=== PATIENT | male | born 1960 | race Caucasian/White ===

== ENCOUNTER 2017-02-06 12:51 | Emergency (ER) | payer MEDICARE, MEDICAID ==
[2017-02-06] MEDS ORDERED: RINGERS SOLUTION,LACTATED 1,000 ML IV ONE (13:03)
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
[2017-02-06] MEDS ORDERED: PANTOPRAZOLE SODIUM 40 MG VIAL IV PRN (13:07)
[2017-02-06] MEDS ORDERED: PANTOPRAZOLE SODIUM 40 MG VIAL IV ONE (13:07)
[2017-02-06 13:28] LABS: VENOUS BLOOD BASE EXCESS -5.2 mmol/L; VENOUS BLOOD HCO3 20.4 mmol/L (20-32); VENOUS BLOOD PCO2 39.6 mmHg (35-63); VENOUS BLOOD PH 7.33 (7.30-7.42)
[2017-02-06 13:33] LABS: HEMOGLOBIN 12.2 g/dL (13.5-17.0); MEAN CORPUSCULAR HEMOGLOBIN 23.4 pg (27.0-33.4); MEAN CORPUSCULAR HGB CONC 31.2 g/dL (32.0-36.0); MEAN CORPUSCULAR VOLUME 75 fl (80-97); PLATELET COUNT 174 10^3/uL (150-450); RED BLOOD COUNT 5.21 10^6/uL (4.35-5.55); RED CELL DISTRIBUTION WIDTH 16.6 % (11.5-14.0)
[2017-02-06 13:34] LABS: INTERNATIONAL RATION (INR) 1.21; PROTHROMBIN TIME 16.1 SEC (11.4-15.4)
[2017-02-06 13:48] LABS: ALANINE AMINOTRANSFERASE 40 U/L (21-72); ALBUMIN 3.3 g/dL (3.5-5.0); ALKALINE PHOSPHATASE 134 U/L (38-126); ANION GAP 19 (5-19); ASPARTATE AMINO TRANSFERASE 28 U/L (17-59); BILIRUBIN,DIRECT 0.6 mg/dL (0.0-0.4); BILIRUBIN,TOTAL 0.8 mg/dL (0.2-1.3); BLOOD UREA NITROGEN 69 mg/dL (7-20); CALCIUM 9.2 mg/dL (8.4-10.2); CARBON DIOXIDE 18 mmol/L (22-30); CHLORIDE 103 mmol/L (98-107); GLUCOSE 120 mg/dL (75-110); MAGNESIUM 3.1 mg/dL (1.6-2.3); POTASSIUM 5.1 mmol/L (3.6-5.0); SODIUM 140.3 mmol/L (137-145)
[2017-02-06 14:03] LABS: FREE T3 1.81 pg/mL (2.77-5.27); FREE T4 (FREE THYROXINE) 1.33 ng/dL (0.78-2.19)
[2017-02-06 14:11] LABS: ABSOLUTE LYMPHOCYTES# (MANUAL) 3.5 10^3/uL (0.5-4.7); ABSOLUTE MONOCYTES # (MANUAL) 1.2 10^3/uL (0.1-1.4); ABSOLUTE NEUTROPHILS# (MANUAL) 53.5 10^3/uL (1.7-8.2); BAND NEUTROPHILS % (MANUAL) 4 % (3-5); BASOPHILS % (MANUAL) 0 % (0-2); EOSINOPHILS % (MANUAL) 0 % (0-6); LYMPHOCYTES % (MANUAL) 6 % (13-45); MONOCYTES % (MANUAL) 2 % (3-13); SEGMENTED NEUTROPHILS % (MAN) 88 % (42-78); TOTAL CELLS COUNTED 100
[2017-02-06 14:13] LABS: ACANTHOCYTES 2+; ANISOCYTOSIS 1+; BURR CELLS 2+; OVALOCYTES SLIGHT; PLATELET COMMENT ADEQUATE; PLATELET GIANT PRESENT; PLATELET LARGE PRESENT; POIKILOCYTOSIS 1+; SCHISTOCYTES 1+; TEAR DROP CELLS SLIGHT; TOXIC GRANULATION 1+
[2017-02-06 14:14] LABS: WHITE BLOOD COUNT 58.1 10^3/uL (4.0-10.5)
[2017-02-06 14:16] LABS: THYROID STIMULATING HORMONE 1.41 uIU/mL (0.47-4.68)
--- NOTE | 2017-02-06 14:21 | RADIOLOGY REPORT (SQ) ---
EXAM DESCRIPTION: CT HEAD WITHOUT COMPLETED DATE/TIME: 02/06/2017 2:02 pm REASON FOR STUDY: on floor, hypothermia, AMS, diff moving COMPARISON: 11/13/2012 TECHNIQUE: Axial images acquired through the brain without intravenous contrast. Images reviewed wi th bone, brain and subdural windows. Images stored on PACS. All CT scanners at this facility use dose modulation, iterative reconstruction, and/or weight based d osing when appropriate to reduce radiation dose to as low as reasonably achievable (ALARA). [facility]: Dose Right [facility]: CareDose [facility]: Dose Right [facility]: Teradose 4D [facility]: [employer] RADIATION DOSE: CT Rad equipment meets quality standard of care and radiation dose reduction techniq ues were employed. CTDIvol: 64.6 mGy. DLP: 1163 mGy-cm.mGy. LIMITATIONS: None. FINDINGS: VENTRICLES: Prominent. CEREBRUM: No masses. No hemorrhage. No midline shift. Areas of low density in the white matter mos t likely due to chronic micro-vascular ischemic change. There is an acute/subacute infarction involv ing the right parietal and occipital lobes compatible with MCA territory infarction. Stable encephal omalacia involving the bilateral frontal lobes, right greater than left. Chronic lacunar infarcts bi laterally. CEREBELLUM: No masses. No hemorrhage. No alteration of density. No evidence for acute infarction. EXTRAAXIAL SPACES: Age-related involutional change. No fluid collections. No masses. ORBITS AND GLOBE: No intra- or extraconal masses. Normal contour of globe without masses. CALVARIUM: No fracture. PARANASAL SINUSES: No fluid or mucosal thickening. SOFT TISSUES: No mass or hematoma. OTHER: No other significant finding. IMPRESSION: ACUTE/SUBACUTE INFARCTION INVOLVING THE RIGHT PARIETAL AND OCCIPITAL LOBES. NO HEMORRHA GE OR MASS LESION. ADDITIONAL SENESCENT CHANGE ABOVE. EVIDENCE OF ACUTE STROKE: YES. RIGHT MCA COMMENT: RESULTS COMMUNICATED TO AT 1415 HOURS ON 02/06/2017. TECHNICAL DOCUMENTATION: JOB ID: [id number] Quality ID # 436: Final reports with documentation of one or more dose reduction techniques (e.g., Au tomated exposure control, adjustment of the mA and/or kV according to patient size, use of iterative reconstruction technique) 2010 [employer]- All Rights Reserved
[2017-02-06 14:25] LABS: AMORPHOUS SEDIMENT,URINE 2+ /HPF; APPEARANCE,URINE TURBID; BILIRUBIN,URINE NEGATIVE (NEGATIVE); GLUCOSE, URINE NEGATIVE (NEGATIVE); KETONES,URINE NEGATIVE (NEGATIVE); LEUKOCYTE ESTERASE,URINE NEGATIVE (NEGATIVE); NITRITE,URINE NEGATIVE (NEGATIVE); PROTEIN,URINE NEGATIVE (NEGATIVE); URINE SPECIFIC GRAVITY 1.023
[2017-02-06 14:29] LABS: COLOR,URINE DARK YELLOW
[2017-02-06] MEDS ORDERED: NORMAL SALINE 1000 ML 1,000 ML IV ONE (14:33)
--- NOTE | 2017-02-06 14:41 | RADIOLOGY REPORT (SQ) ---
EXAM DESCRIPTION: CTA ABD AORTA AND EXTREMITY COMPLETED DATE/TIME: 02/06/2017 2:07 pm REASON FOR STUDY: pulseless lower extremities, distended abdomen COMPARISON: None. TECHNIQUE: CT scan of the body and lower extremities performed with intravenous contrast using helic al scanning technique with dynamic intravenous contrast injection. Images reviewed with lung, soft ti ssue, and bone windows. Reconstructed coronal and sagittal MPR images reviewed. All images stored on PACS. Advanced 3D imaging as volume-rendering, MIPs, SSD performed? yes All CT scanners at this facility use dose modulation, iterative reconstruction, and/or weight based d osing when appropriate to reduce radiation dose to as low as reasonably achievable (ALARA). [facility]: Dose Right [facility]: CareDose [facility]: Dose Right [facility]: Teradose 4D [facility]: [employer] CONTRAST TYPE AND DOSE: Information not available. RENAL FUNCTION: Not acquired. LIMITATIONS: None. FINDINGS: POST-CONTRAST IMAGING: AORTA AND VESSELS: Extensive atherosclerotic disease with diffuse calcified and asymmetric and non ca lcified plaque with ectasia of the right and left common iliac arteries. No aneurysm. No dissection. Renal arteries, SMA, celiac without significant stenosis. LUNG BASES: No significant findings. No nodules or infiltrates. LIVER: Normal size. No masses or dilated ducts. SPLEEN: Multiple wedge-shaped defects within the spleen compatible with infarction. PANCREAS: No masses. No significant calcifications. No adjacent inflammation or peripancreatic fluid collections. Pancreatic duct not dilated. GALLBLADDER: No identified stones by CT criteria. No inflammatory changes to suggest cholecystitis. ADRENAL GLANDS: Nodular appearance bilaterally with delayed homogeneous enhancement suggestive of hyp operfusion. RIGHT KIDNEY AND URETER: No mass, calculi or urinary tract obstruction. LEFT KIDNEY AND URETER: No mass, calculi or urinary tract obstruction. Several wedge-shaped defects compatible with infarction. RETROPERITONEUM: No retroperitoneal adenopathy, hemorrhage or masses. BOWEL AND PERITONEAL CAVITY: There is masslike thickening involving the rectosigmoid colon with tethe ring of adjacent small bowel loops highly concerning for a advanced primary colonic malignancy. Ther e is diverticulosis without definite evidence of diverticulitis. Small bowel loops are gas distended which is likely due to ileus rather than obstruction as there no air-fluid levels. APPENDIX: Not visualized. ABDOMINAL WALL: No masses. No hernias. BONY STRUCTURES: No significant or acute findings. 3-D IMAGING: Confirms the above findings. OTHER: No other significant finding. LOWER EXTREMITIES: FEMORAL ARTERIES: There is some narrowing involving the left common femoral artery with occlusion at the level of the bifurcation best seen on series 4, images 168 through 175. There is narrowing of th e right common femoral artery and profundus artery with occlusion of the superficial femoral artery a t its origin as seen on series 4, image 158. POPLITEAL ARTERIES: Occluded bilaterally. TIBIOPERONEAL TRUNK AND RUNOFF VESSELS: There is somewhat runoff noted to the right lower extremity v ia the profundus however no flow is seen distal to the ankle. There is no runoff to the left lower e xtremity. OTHER: No other significant finding. IMPRESSION: NO ABDOMINAL AORTIC ANEURYSM, DISSECTION OR SIGNIFICANT STENOSIS IN THE AORTA, ILIAC ART ERIES, OR LOWER EXTREMITY VESSELS. NO SIGNIFICANT FINDINGS IN THE ABDOMEN, PELVIS, OR LOWER EXTREMITI ES. COMMENT: 1. MASSLIKE THICKENING OF THE RECTOSIGMOID COLON HIGHLY CONCERNING FOR PRIMARY COLONIC MAL IGNANCY. NO GROSS FREE AIR TO SUGGEST PERFORATION. NO DEFINITE OBSTRUCTION. 2. AREAS OF INFARCTIO N INVOLVING THE SPLEEN AND LEFT KIDNEY PRESUMABLY SEQUELA TO EMBOLIC PHENOMENA VESSELS REMAIN MACIAS NT. 3. EXTENSIVE ATHEROSCLEROTIC DISEASE WITH OCCLUSION OF THE LEFT COMMON FEMORAL ARTERY AT ITS BIFURCA TION AND THE RIGHT SUPERFICIAL FEMORAL ARTERY AT ITS ORIGIN. THERE IS MINIMAL FLOW TO THE RIGHT LOWE R EXTREMITY WITHOUT FLOW SEEN DISTAL TO THE ANKLE. THERE IS NO FLOW TO THE LEFT LOWER EXTREMITY. 4. ADDITIONAL CHRONIC CHANGES ABOVE. Pertinent findings on the imaging study reported as a CRITICAL RESULT to JAHAIRA URRUTIA DO at14:35 on 02/06/2017. Category of Critical Result: VASCULAR OCCLUSION. TECHNICAL DOCUMENTATION: JOB ID: [id number] Quality ID # [id number]: Final reports with documentation of one or more dose reduction techniques (e.g., Au tomated exposure control, adjustment of the mA and/or kV according to patient size, use of iterative reconstruction technique) 2010 [employer]- All Rights Reserved
[2017-02-06 14:48] LABS: CREATINE KINASE MB 8.61 ng/mL (<4.55)
--- NOTE | 2017-02-06 14:48 | RADIOLOGY REPORT (SQ) ---
EXAM DESCRIPTION: CHEST SINGLE VIEW COMPLETED DATE/TIME: 02/06/2017 2:02 pm REASON FOR STUDY: on floor, hypothermia, AMS, diff moving COMPARISON: 11/14/2012 EXAM PARAMETERS: NUMBER OF VIEWS: One view. TECHNIQUE: Single frontal radiographic view of the chest acquired. RADIATION DOSE: NA LIMITATIONS: None. FINDINGS: LUNGS AND PLEURA: Cavitary subpleural versus chest wall mass left upper lobe measuring 7 c m. Lungs and pleural spaces otherwise clear. No pneumothorax. MEDIASTINUM AND HILAR STRUCTURES: No masses. Contour normal. HEART AND VASCULAR STRUCTURES: Heart normal in size. Normal vasculature. BONES: No acute findings. HARDWARE: None in the chest. OTHER: NONE. IMPRESSION: 7 CM CAVITARY SUBPLEURAL VERSUS CHEST WALL MASS LEFT UPPER LOBE HIGHLY CONCERNING FOR [place] IMARY LUNG MALIGNANCY VERSUS METASTATIC LESION GIVEN FINDINGS IN ABDOMEN. RECOMMEND FURTHER CHARACTE RIZATION WITH CT CHEST WHEN CLINICALLY APPROPRIATE. TECHNICAL DOCUMENTATION: JOB ID: [id number] [facility] [employer]- All Rights Reserved
[2017-02-06] MEDS ORDERED: ASPIRIN 300 MG SUPP, RECTAL PR ONE (14:50)
[2017-02-06 14:51] LABS: TROPONIN I 0.115 ng/mL
[2017-02-06] MEDS ORDERED: HEPARIN SOD (PORCINE) 1,000 UNIT/ML 10 ML VIAL IV ONE (16:20)
[2017-02-06] MEDS ORDERED: HEPARIN SODIUM,PORCINE/D5W 25,000 UNIT/250 ML RTUINJ IV PRN (16:20)
[2017-02-06 16:21] VITALS: BP 119/106
[2017-02-06 17:29] LABS: INTERNATIONAL RATION (INR) 1.24; PARTIAL THROMBOPLASTIN TIME 25.3 SEC (23.5-35.8); PROTHROMBIN TIME 16.5 SEC (11.4-15.4)
[2017-02-06] MEDS ORDERED: HEPARIN SOD (PORCINE) 1,000 UNIT/ML 10 ML VIAL IV PRN (19:20)
[2017-02-08 09:37] LABS: PATH REVIEW PATHOLOGIST REVIEWED
--- NOTE | 2017-02-08 09:43 | EKG REPORT ---
SEVERITY:- ABNORMAL ECG - SINUS RHYTHM NONSPECIFIC IVCD WITH LAD : Confirmed by: Devon Roman 08-Feb-2017 09:42:28
== END 2017-02-06 17:35 | disposition short-term general hospital (02) ==
LOC: ER 12:51
DX: I63.411 Cerebral infarction due to embolism of right middle cerebral artery (principal); T68.XXXA Hypothermia, initial encounter; N17.9 Acute kidney failure, unspecified; I99.8 Other disorder of circulatory system; K63.9 Disease of intestine, unspecified; K92.2 Gastrointestinal hemorrhage, unspecified; R91.8 Other nonspecific abnormal finding of lung field; D73.5 Infarction of spleen; N28.0 Ischemia and infarction of kidney
CPT/HCPCS: 93005; 96376; 99291; 99292; 51702; 96375; 96365; 96366; 96367; 86900; 86901; 36415; 87040; 87086; 84439; 82553; 86850; 82550; 83735; 84443; 85025; 85610; 85730; 80053; 81001; 84484; 84481; 82803; 83605; 71010; 70450; 75635; 93010; J1644 ×2; A9270; C9113; J7030; J7120; C1751; J3490; S0164